=== PATIENT | female | born 1970 | race Caucasian/White ===

== ENCOUNTER 2018-02-01 11:41 | Emergency (ER) | payer BC ==
[~2018-02-01] VITALS: Ht 162.6 cm; Wt 73.6 kg
[~2018-02-01 11:41] MED LIST: ASPIRIN EC325 MG PO; IRON325 M1 PO; PRAVASTATIN SOD80 MG PO
[2018-02-01 12:32] LABS: HEMATOCRIT 40.1 % (36.0-46.0); MCHC 34.9 G/DL (30.0-36.0); MCV 91.6 FL (83-99); PLATELET COUNT 259 K/uL (156-360); RBC DIS.WIDTH-CV 12.7 % (11.8-14.6); RBC DIS.WIDTH-SD 42.5 % (39-53); RED BLOOD COUNT 4.38 M/uL (3.80-5.20)
[2018-02-01 12:42] LABS: CHLORIDE 107 mEq/L (99-109); POTASSIUM 4.6 mEq/L (3.7-5.4); SODIUM 139 mEq/L (136-147)
[2018-02-01 12:44] LABS: GLUCOSE 89 mg/dL (70-99)
[2018-02-01 12:48] LABS: CREATININE 0.7 mg/dL (0.6-1.3); GFR ESTIMATE (CALCULATED) > 59 mL/min/
[2018-02-01 12:49] LABS: UREA NITROGEN (BUN) 14 mg/dL (9-23)
[2018-02-01 14:14] LABS: TROP-I INTERPRETATION NEGATIVE; TROPONIN-I < 0.01 ng/mL (0.0-0.30)
[2018-02-01 14:55] VITALS: BP 114/68
== END 2018-02-01 14:55 | disposition home or self-care (01) ==
LOC: EME 11:41
DX: R07.89 Other chest pain (principal); R94.31 Abnormal electrocardiogram [ECG] [EKG]; Z87.891 Personal history of nicotine dependence; Z87.442 Personal history of urinary calculi; Z86.73 Personal history of transient ischemic attack (TIA), and cerebral infarction without residual deficits; Z90.49 Acquired absence of other specified parts of digestive tract; Z88.8 Allergy status to other drugs, medicaments and biological substances; Z88.1 Allergy status to other antibiotic agents
CPT/HCPCS: 71046; 80048; 84484; 85027; 93005; 99281; 99284